=== PATIENT | female | born 1970 | race Caucasian/White ===

== ENCOUNTER → 2019-04-12 08:45 | Outpatient (BNVA) | payer MEDICAID, SELFPAY | PROVIDERS: Family Provider Family Medicine; PCP Internal Medicine; Visit Provider Nurse Practitioner | DX: F43.12 Post-traumatic stress disorder, chronic (principal); F60.3 Borderline personality disorder; F41.1 Generalized anxiety disorder | CPT/HCPCS: 99213 ==

== ENCOUNTER → 2019-07-05 08:19 | Outpatient (BNVA) | payer MEDICAID, SELFPAY | PROVIDERS: Family Provider Family Medicine; PCP Internal Medicine; Visit Provider Nurse Practitioner | DX: F41.1 Generalized anxiety disorder (principal); F60.3 Borderline personality disorder; F43.12 Post-traumatic stress disorder, chronic | CPT/HCPCS: 99213 ==

== ENCOUNTER → 2019-09-20 07:42 | Outpatient (BNVA) | payer MEDICAID, SELFPAY | PROVIDERS: Family Provider Family Medicine; Visit Provider Nurse Practitioner | DX: F41.1 Generalized anxiety disorder (principal); F60.3 Borderline personality disorder; F43.12 Post-traumatic stress disorder, chronic | CPT/HCPCS: 99213 ==

== ENCOUNTER 2019-10-14 09:40 | Outpatient (CLI) | payer MEDICAID, SELFPAY ==
--- NOTE | 2019-10-14 09:45 | MM_ITS ---
WS: [id number] SCREENING DIGITAL MAMMOGRAM WITH CAD HISTORY: SCREENING COMPARISON: 04/12/2018 and 03/08/2014 Bilateral CC and MLO views submitted. Computer aided detection analyzed. Breast composition: There are scattered areas of fibroglandular density. No suspicious masses, microc alcifications or architectural distortion. MM/[place] [id number] IMPRESSION: BI-RADS: 1-Negative FOLLOW UP: 1 Year Follow-up
== END 2019-10-14 09:41 | disposition home or self-care (01) ==
LOC: RADSHAW 09:44
PROVIDERS: PCP Physician Assistant; Visit Provider Physician Assistant
DX: Z12.31 Encounter for screening mammogram for malignant neoplasm of breast (principal)
CPT/HCPCS: 77067

== ENCOUNTER 2019-11-03 13:17 | Outpatient (CLI) | payer SELFPAY ==
--- NOTE | 2019-11-03 13:22 | XR_ITS ---
WS: [id number] EXAM: LEFT HIP: 2 VIEWS DATE OF EXAMINATION: 11/03/2019, 1328 hours COMPARISON: None. HISTORY: Patient is 49 years old with hip pain. FINDINGS: Bone density is normal in appearance. There are minimal changes of arthritis in the hip joint. No fra cture, lytic or blastic process is seen. Minimal arthritis in the left SI joint. No soft tissue abnor mality noted. XR/XR hip LT 2-3V wo/w pel* [id number] IMPRESSION: Mild changes of arthritis as described. No acute abnormality.
== END 2019-11-03 13:18 | disposition home or self-care (01) ==
LOC: RADWPI 13:17
PROVIDERS: PCP Physician Assistant; Visit Provider Anesthesiology Pain Medicine
DX: M25.552 Pain in left hip (principal)
CPT/HCPCS: 73502

== ENCOUNTER → 2019-12-22 07:27 | Outpatient (BNVA) | payer MEDICAID, SELFPAY | PROVIDERS: PCP Physician Assistant; Visit Provider Nurse Practitioner | DX: F60.3 Borderline personality disorder (principal); F41.1 Generalized anxiety disorder; F43.12 Post-traumatic stress disorder, chronic | CPT/HCPCS: 99213 ==

== ENCOUNTER → 2020-01-24 08:19 | Outpatient (BNVA) | payer MEDICAID, SELFPAY | PROVIDERS: PCP Physician Assistant; Referring Provider Orthopaedic Surgery; Visit Provider Anesthesiology Pain Medicine | DX: M25.552 Pain in left hip (principal); M25.551 Pain in right hip; M53.3 Sacrococcygeal disorders, not elsewhere classified; M79.7 Fibromyalgia | CPT/HCPCS: 20610; 99204; J1030; J3490 ==

== ENCOUNTER → 2020-02-26 12:55 | Outpatient (BNVA) | payer MEDICAID, SELFPAY | PROVIDERS: PCP Physician Assistant; Visit Provider Nurse Practitioner Family | DX: N39.0 Urinary tract infection, site not specified (principal) | CPT/HCPCS: 81000 ==

== ENCOUNTER → 2020-03-30 08:49 | Outpatient (BNVA) | payer MEDICAID, SELFPAY | PROVIDERS: PCP Physician Assistant; Visit Provider Nurse Practitioner | DX: F43.12 Post-traumatic stress disorder, chronic (principal); F60.3 Borderline personality disorder; F41.1 Generalized anxiety disorder | CPT/HCPCS: 99213 ==

== ENCOUNTER → 2020-06-05 11:22 | Outpatient (BNVA) | payer OTHER, SELFPAY | PROVIDERS: PCP Physician Assistant; Visit Provider Nurse Practitioner | DX: F60.3 Borderline personality disorder (principal) | CPT/HCPCS: 80061; 83036 ==

== ENCOUNTER → 2020-06-15 08:16 | Outpatient (BNVA) | payer MEDICAID, SELFPAY ==
[2020-06-07 10:08] VITALS: BP 128/91; BMI 36.1
== END ==
PROVIDERS: PCP Physician Assistant; Visit Provider Nurse Practitioner
DX: F43.12 Post-traumatic stress disorder, chronic (principal); F60.3 Borderline personality disorder; F41.1 Generalized anxiety disorder
CPT/HCPCS: 99214

== ENCOUNTER → 2020-09-11 13:01 | Outpatient (BNVA) | payer MEDICAID, SELFPAY ==
[2020-06-07 10:08] VITALS: BP 128/91; BMI 36.1
== END ==
PROVIDERS: PCP Physician Assistant; Visit Provider Nurse Practitioner
DX: F43.12 Post-traumatic stress disorder, chronic (principal); F60.3 Borderline personality disorder; F41.1 Generalized anxiety disorder
CPT/HCPCS: 99214

== ENCOUNTER → 2020-12-06 14:00 | Outpatient (BNVA) | payer MEDICAID, SELFPAY ==
[2020-06-07 10:08] VITALS: BP 128/91; BMI 36.1
== END ==
PROVIDERS: PCP Physician Assistant; Visit Provider Nurse Practitioner
DX: F43.12 Post-traumatic stress disorder, chronic (principal); F60.3 Borderline personality disorder; F41.1 Generalized anxiety disorder
CPT/HCPCS: 99214

== ENCOUNTER 2021-01-03 10:20 | Outpatient (CLI) | payer MEDICAID, SELFPAY ==
[2020-06-07 10:08] VITALS: BP 128/91; BMI 36.1
--- NOTE | 2021-01-03 10:27 | MR_ITS ---
WS: [id number] MRI RIGHT SHOULDER NONCONTRAST TECHNIQUE: Sagittal T2, coronal T1, T2 and proton density imaging. Axial gradient PDE imaging. CLINICAL INFORMATION: INTERNAL DERANGEMENT RT SHOULDER COMPARISON: None. FINDINGS: Moderate degenerative arthritis AC joint with mild edema and mild downsloping of the acromion. Slight impingement on the distal supraspinatus with subacromial spurring. Mild tendinopathy in the distal s upraspinatus. Normal infraspinatus. Normal subscapularis. Normal teres minor. No high-grade rotator cuff tears. Normal biceps tendon in the bicipital groove. Normal biceps labral anchor. Glenoid labrum appears reggie ssly normal. Normal bone marrow signal in the glenoid. Degenerative edema in the humerus. MR/MR shoulder RT wo con* [id number] IMPRESSION: 1. Moderate degenerative arthritis AC joint with mild edema and mild downslopi ng of the acromion. Slight impingement on the distal supraspinatus with subacro mial spurring. 2. Mild tendinopathy distal supraspinatus. 3. Rotator cuff is intact. No high-grade rotator cuff tears. 4. Normal biceps tendon in the bicipital groove. Normal biceps labral anchor. 5. Normal intra-articular biceps tendon. 6. No other significant findings.
== END 2021-01-03 10:21 | disposition home or self-care (01) ==
LOC: RADSHAW 10:26
PROVIDERS: PCP Physician Assistant; Visit Provider Physician Assistant
DX: M24.811 Other specific joint derangements of right shoulder, not elsewhere classified (principal); M19.011 Primary osteoarthritis, right shoulder
CPT/HCPCS: 73221

== ENCOUNTER → 2021-01-23 13:07 | Outpatient (BNVA) | payer MEDICAID, SELFPAY ==
[2020-06-07 10:08] VITALS: BP 128/91; BMI 36.1
== END ==
PROVIDERS: PCP Physician Assistant; Referring Provider Physician Assistant; Visit Provider Orthopaedic Surgery
DX: M25.511 Pain in right shoulder (principal)
CPT/HCPCS: 73030

== ENCOUNTER → 2021-02-19 13:54 | Outpatient (BNVA) | payer OTHER, SELFPAY ==
[2020-06-07 10:08] VITALS: BP 128/91; BMI 36.1
== END ==
PROVIDERS: PCP Physician Assistant; Visit Provider Psychiatry & Neurology Psychiatry
DX: F43.12 Post-traumatic stress disorder, chronic (principal)
CPT/HCPCS: 80061; 83036

== ENCOUNTER → 2021-02-28 12:55 | Outpatient (BNVA) | payer MEDICAID, SELFPAY ==
[2021-02-22 16:44] VITALS: BP 99/56; BMI 36.8
== END ==
PROVIDERS: PCP Physician Assistant; Visit Provider Nurse Practitioner
DX: F41.1 Generalized anxiety disorder (principal); F60.3 Borderline personality disorder; F43.12 Post-traumatic stress disorder, chronic
CPT/HCPCS: 99214

== ENCOUNTER → 2021-05-23 10:46 | Outpatient (BNVA) | payer MEDICAID, OTHER, SELFPAY ==
[2021-02-22 16:44] VITALS: BP 99/56; BMI 36.8
== END ==
PROVIDERS: PCP Physician Assistant; Visit Provider Nurse Practitioner
DX: F41.1 Generalized anxiety disorder (principal); F60.3 Borderline personality disorder; F43.12 Post-traumatic stress disorder, chronic
CPT/HCPCS: 99214

== ENCOUNTER → 2021-08-26 07:21 | Outpatient (BNVA) | payer MEDICAID, OTHER, SELFPAY ==
[2021-02-22 16:44] VITALS: BP 99/56; BMI 36.8
== END ==
PROVIDERS: PCP Physician Assistant; Visit Provider Nurse Practitioner
DX: F41.1 Generalized anxiety disorder (principal); F60.3 Borderline personality disorder; F43.12 Post-traumatic stress disorder, chronic
CPT/HCPCS: 99214

== ENCOUNTER 2022-12-10 18:05 | Emergency (ER) | payer MEDICAID, SELFPAY ==
[2021-02-22 16:44] VITALS: BP 99/56; BMI 36.8
[2022-12-10 18:09] VITALS: BP 124/84; PULSE 76; RESP 18; TEMP 36.7; O2SAT 100; BMI 35.6
--- NOTE | 2022-12-10 18:59 | ED_ITS ---
HPI - Nausea/Vomiting/Diarrhea General: Chief complaint: Nausea/Vomiting/Diarrhea Stated complaint: N/V, fever, abdomin pain Time Seen by Provider: 12/10/22 18:49 History of Present Illness: 52-year-old female comes in today with central abdominal pain radiating to her back for the last 2 weeks with nausea and vomiting. Patient reports a history of pancreatitis. Patient does have a history of of chronic pain disorder secondary to osteoarthritis in the hip and degenerative spinal disc disease. Patient denies alcohol use. Patient appears nontoxic. Patient appears in mild to moderate pain. Associated nausea: Yes Associated symtoms: Reports nausea Review of Systems 2 General: Reports: 10 or more systems reviewed and unremarkable except in HPI and below Const: Denies: fever(s) GI: Reports: abdominal pain, nausea and vomiting Musc: Denies: neck pain or back pain Skin/Breast: Denies: rash PFSH ED PFSH: Medical History (Updated 12/10/22 @ 21:19 by JOVON Macias) Borderline personality disorder Fibromyalgia Generalized anxiety disorder Hidradenitis Hypercholesteremia Hypertension Hypothyroidism Post-traumatic stress disorder, chronic Psychiatric care Type 2 diabetes mellitus Vaginal atrophy Surgical History H/O dilation and curettage H/O foot surgery removed heel spur, repaired nerve damaged from plantar fascitis H/O removal of cyst ganglion cyst---right third finger H/O tubal ligation (~1995) H/O unilateral oophorectomy (~2006) due to cyst on the ovary H/O: hemorrhoidectomy (~02/2020) performed at [facility] in [place] H/O: hysterectomy (~2001) [facility]--due to fibroid-- performed in [place]---both ovaries spared---> right ovary was later removed due to cyst History of appendectomy (~2006) History of cholecystectomy History of reconstructive repair of rectocele (~2006) due to trauma from delivery; bladder sling--- completed in [place] Family History Mother Diabetes Hypertension Family history of thyroid problem Cancer kidney, lung and brain Family/Other Diabetes Maternal aunt Maternal uncle Stroke Maternal uncle Breast cancer Paternal aunt Maternal aunt Colon cancer Cousin Cancer multiple family members with leukemia and lymphoma on father's side Grandmother Stroke Maternal grandmother Denies family history of Ovarian cancer Heart disease Uterine cancer Social History Smoking and tobacco status: current some day smoker e-cigarettes E-Cigarette Details: e-cigarette and with nicotine Second hand smoke exposure: Yes Smoking risk assessment/counseling performed?: Yes Alcohol intake: never Substance/Drug Use: never Adopted: No Caregiver/support person: Yes Lives independently: Yes Household members: none Housing: Apartment Marital status: Marital status details: twice Number of children: 2 Number of grandchildren: 4 Highest education level completed: GED or Equivalent service: No Current occupational status: disabled Pets and animals: No Leisure activites: exercise Sexually active: No Do you think of yourself as: Straight/Heterosexual Current gender identity: Female Jessica/Orthodoxy: Yazidi Special jessica needs: No Agree to transfusion: Yes Financial difficulty paying for basics: Not Very Hard Female Reproductive History: Para: 2 Spontaneous abortions: No Physical Exam Const: COMMON NORMALS: alert HENMT: COMMON NORMALS: normocephalic HEAD & SCALP: normocephalic Neck/C-Spine: COMMON NORMALS: full ROM Chest: COMMONS NORMALS: normal inspection of the chest Resp: COMMON NORMALS: normal respiratory effort and clear to auscultation bilaterally AUSCULTATION: clear to auscultation bilaterally Cardio: COMMON NORMALS: regular rate RATE: regular rate GI: COMMON NORMALS: Soft to palpation PALPATION: Yes Soft to palpation and Yes Tenderness to palpation present (GI) (tenderness central abd) Back/Pelvis: COMMON NORMALS: thoracic and lumbar spine normal to inspection Extremity: COMMON NORMALS: full ROM Neuro: SENSORIUM/ORIENTATION: Yes alert Skin: COMMON NORMALS: turgor normal GENERAL SKIN EXAM: turgor normal Course Vital Signs: Vital signs: Vital Signs Temperature 98.1 F 12/10/22 18:09 Pulse Rate 51 L 12/10/22 20:32 Respiratory Rate 18 12/10/22 20:32 Blood Pressure 108/77 12/10/22 20:32 Pulse Oximetry 100 12/10/22 20:32 Oxygen Delivery Me thod Room Air 12/10/22 20:32 MDM - Nausea/Vomiting/Diarrhea Medical Decision Making 52-year-old female comes in today with complaints of increased nausea and vomiting for the last 2 weeks. Patient appears nontoxic. Patient appears in mild to no pain. Abdomen is tender in the midepigastric region. Skin is warm and dry. Vital signs are normal. Differential diagnosis includes exacerbation of chronic pancreatitis, gastroparesis, gastritis, constipation, choledocholithiasis, aortic aneurysm. CBC and CMP noted some mild increase in creatinine at 1.0.. CT of the abdomen and pelvis showed no acute findings. Patient was treated for mild dehydration and abdominal pain with IV fluids morphine and ondansetron. Patient was discharged home with [facility] for concerns of probable gastroparesis due to increased pain and discomfort after eating and frequent nausea and vomiting and history of diabetes. Recommend follow-up with primary care for further evaluation and treatment. Patient reported u nderstanding agreed to plan. Lab Data 12/10/22 18:35 12/10/22 18:35 Radiology Impressions Abdomen/Pelvis CT 12/10/22 19:09 IMPRESSION: No acute findings. Laboratory Results WBC 7.69 10^3/uL (3.29-11.43) 12/10/22 18:35 RBC 3.81 10^6/uL (3.85-5.65) L 12/10/22 18:35 Hgb 11.50 g/dL (11.27-16.99) 12/10/22 18:35 Hct 33.0 % (36-47) L 12/10/22 18:35 MCV 86.6 fl (85-98) 12/10/22 18:35 MCH 30.2 pg (27-33) 12/10/22 18:35 MCHC 34.8 g/dL (30-55) 12/10/22 18:35 RDW 13.9 % (12.1-15.1) 12/10/22 18:35 Plt Count 409 10^3/cmm (157-399) H 12/10/22 18:35 MPV 10.7 fL (7.4-10.4) H 12/10/22 18:35 Neut % (Auto) 50.9 % 12/10/22 18:35 Lymph % (Auto) 41.5 % 12/10/22 18:35 Allen % (Auto) 5.7 % 12/10/22 18:35 Eos % (Auto) 1.2 % 12/10/22 18:35 Baso % (Auto) 0.4 % 12/10/22 18:35 Neut # (Auto) 3.92 10^3/uL (1.8-7.7) 12/10/22 18:35 Lymph # (Auto) 3.2 10^3/uL (0.8-4.8) 12/10/22 18:35 Allen # (Auto) 0.4 10^3/uL (0.2-0.9) 12/10/22 18:35 Eos # (Auto) 0.1 10^3/uL (0.0-0.8) 12/10/22 18:35 Baso # (Auto) 0.0 10^3/uL (0.0-0.1) 12/10/22 18:35 Nucleated RBC % (auto) 0 % 12/10/22 18:35 Nucleated RBCs # 0.0 /100WBC 12/10/22 18:35 Sodium 140 mmol/L (136-145) 12/10/22 18:35 Potassium 3.6 mmol/L (3.5-5.1) 12/10/22 18:35 Chloride 107 mmol/L (98-107) 12/10/22 18:35 Carbon Dioxide 23 mmol/L (22-29) 12/10/22 18:35 Anion Gap 13.6 (5-19) 12/10/22 18:35 BUN 22 mg/dL (6-20) H 12/10/22 18:35 Creatinine 1.0 mg/dL (0.5-0.9) H 12/10/22 18:35 GFR Calculation 57.8 mL/min (90-130) L 12/10/22 18:35 Glucose 95 mg/dL (65-115) 12/10/22 18:35 Calculated Osmolality 293 mOsm/kg (285-295) 12/10/22 18:35 Calcium 9.5 mg/dL (8.5-10.5) 12/10/22 18:35 Total Bilirubin 0.4 mg/dL (0.15-1.2) 12/10/22 18:35 AST 13 U/L (0-32) 12/10/22 18:35 ALT 9 U/L (0-33) 12/10/22 18:35 Alkaline Phosphatase 31 U/L (35-105) L 12/10/22 18:35 Total Protein 6.8 g/dL (6.6-8.7) 12/10/22 18:35 Albumin 4.3 g/dL (3.5-5.2) 12/10/22 18:35 Globulin 2.5 g/dL (1.3-4.6) 12/10/22 18:35 Lipase 45 U/L (13-60) 12/10/22 18:35 Urine Color Yellow (Yellow) 12/10/22 19:50 Urine Appearance Clear (CLEAR) 12/10/22 19:50 Urine pH 5 (5-7) 12/10/22 19:50 Ur Specific Sidney 1.015 (1.005-1.030) 12/10/22 19:50 Urine Protein Neg (Negative) 12/10/22 19:50 Urine Glucose (UA) Norm (Normal) 12/10/22 19:50 Urine Ketones 1+ (Negative) H 12/10/22 19:50 Urine Blood Neg (Negative) 12/10/22 19:50 Urine Nitrate Negative (Negative) 12/10/22 19:50 Urine Bilirubin 1+ (Negative) H 12/10/22 19:50 Urine Urobilinogen Norm mg/dL (Negative) 12/10/22 19:50 Ur Leukocyte Esterase Trace (Negative) H 12/10/22 19:50 Urine RBC Rare /hpf (0-2) 12/10/22 19:50 Urine WBC 0-4 /hpf (0-5) H 12/10/22 19:50 Ur Squamous Epith Cells 0-4 /hpf (0-5) H 12/10/22 19:50 Amorphous Sediment Not Reportable 12/10/22 19:50 Urine Bacteria None /hpf (NONE) 12/10/22 19:50 Hyaline Casts 0-4 /lpf H 12/10/22 19:50 Urine Mucus 2+ /hpf 12/10/22 19:50 All radiology interpretation(s) finalized by discharge Discharge Plan Discharge Patient Disposition: Home Clinical Impression: Diabetic gastroparesis Abdominal pain Qualifiers: Abdominal location: epigastric Qualified Code(s): R10.13 - Epigastric pain Condition: Stable Prescriptions: New metoclopramide HCl 10 mg tablet 10 mg PO Q6H PRN (Reason: nausea and vomiting) Qty: 40 0RF No Action diphenhydramine HCl [Benadryl] 25 mg capsule 25 mg PO .Qhs PRN (Reason: allergy symptoms) hydrocodone-acetaminophen [Hunter] 10-325 mg tablet 1 tab PO QID lisinopril 10 mg tablet 10 mg PO QDAY fenofibrate micronized 134 mg capsule 134 mg PO QDAY metformin 850 mg tablet 500 mg PO BID tizanidine 4 mg capsule 4 mg PO Q6H PRN ondansetron HCl 4 mg/5 mL solution 4 mg PO Q6H PRN levothyroxine 75 mcg tablet 75 mcg PO DAILY duloxetine [Cymbalta] 60 mg capsule,delayed release(DR/EC) 60 mg PO BID Qty: 60 2RF topiramate [Topamax] 100 mg tablet 100 mg PO BID Qty: 60 2RF diazepam 10 mg tablet See Rx Instructions .ROUTE .COMPLEX Qty: 75 2RF Rx Instructions: Take one tablet by mouth 2 to 3 times daily as needed for anxiety. Discharge Orders: Discharge ED (Routine); Ordered 12/10/22 Ordered By: Leo Demarco Referrals: Margarita Sin PA [Primary Care Provider] - Discharge Diet: Usual diet Discharge Activity: Increase activity as tolerated Patient Instructions: Abdominal Pain (ED) Activity Restrictions/Additional Instructions: Continue with routine care. Use Reglan as needed for gastric discomfort or nausea and vomiting. Light diet. Follow-up with primary care for further evaluation and treatment. Return to ED for new concerns. Coding Level of Care Code ED Pricing Consultant for Ligia Mcwilliams
[2022-12-10 19:01] LABS: Basophils % 0.4 %; Eosinophils # 0.1 10^3/uL (0.0-0.8); Eosinophils % 1.2 %; Lymphocytes # 3.2 10^3/uL (0.8-4.8); Lymphocytes % 41.5 %; Mean Corpuscular HGB Conc 34.8 g/dL (30-55); Mean Corpuscular Hemoglobin 30.2 pg (27-33); Mean Corpuscular Volume 86.6 fl (85-98); Mean Platelet Volume 10.7 fL (7.4-10.4); Monocytes # 0.4 10^3/uL (0.2-0.9); Monocytes % 5.7 %; Neutrophils # 3.92 10^3/uL (1.8-7.7); Neutrophils % 50.9 %; Nucleated Red Blood Cells % 0 %; Platelet Count 409 10^3/cmm (157-399); Red Blood Count 3.81 10^6/uL (3.85-5.65); Red Cell Distribution Width 13.9 % (12.1-15.1); White Blood Count 7.69 10^3/uL (3.29-11.43)
--- NOTE | 2022-12-10 19:09 | CTR_ITS ---
PROCEDURE INFORMATION: Exam: CT Abdomen And Pelvis With Contrast Exam date and time: 12/10/2022 7:39 PM Age: 52 years old Clinical indication: Abdominal pain; Generalized; Prior surgery; Surgery date: 6+ months; Surgery type: Appy, kanwal, hyst; Additional info: Abd pain, HX of pancreatitis TECHNIQUE: Imaging protocol: Computed tomography of the abdomen and pelvis with contrast. Radiation optimization: All CT scans at this facility use at least one of these dose optimization techniques: automated exposure control; mA and/or kV adjustment per patient size (includes targeted exams where dose is matched to clinical indication); or iterative reconstruction. Contrast material: OMNI 350; Contrast volume: 100 ml; Contrast route: INTRAVENOUS (IV); REPORTING DATA: Count of CT and Cardiac NM exams in prior 12 months: This patient has received 0 known CTs and 0 known cardiac nuclear medicine studies in the 12 months prior to the current study. COMPARISON: CT abdomen pelvis w con* [id number] 12/19/2017 12:49 PM RADIATION DOSE METRICS: Total DLP (mGy-cm): 829 FINDINGS: Lungs: Lung bases are clear Liver: Normal. No mass. Gallbladder and bile ducts: There has been a cholecystectomy. There is no common bile duct dilation. Pancreas: The pancreas is normal. Spleen: The spleen is normal. Adrenal glands: There is 7 mm sized nodule left adrenal gland unchanged from 12/19/2017. No further evaluation necessary. The right adrenal gland is normal. Kidneys and ureters: There is a left renal collecting system calcification. The right kidney is normal. There is no evidence of hydronephrosis. There is no stone along the course of either ureter. Stomach and bowel: There is no evidence of colitis/diverticulitis. There is no evidence of intestinal obstruction. Appendix: Not identified Intraperitoneal space: There is no evidence of free intraperitoneal fluid. Vasculature: The aorta is normal. There is no evidence of an abdominal aortic aneurysm. Lymph nodes: There is no evidence of lymphadenopathy. Urinary bladder: Unremarkable as visualized. Reproductive: There has been a hysterectomy. Bones/joints: Unremarkable. No acute fracture. Soft tissues: There is a lipoma of the distal left iliopsoas muscle unchanged. CT/CT abdomen pelvis w con* [id number] IMPRESSION: No acute findings.
[2022-12-10 19:13] LABS: Alanine Aminotransferase 9 U/L (0-33); Albumin Level 4.3 g/dL (3.5-5.2); Alkaline Phosphatase 31 U/L (35-105); Anion Gap 13.6 (5-19); Aspartate Amino Transferase 13 U/L (0-32); Blood Urea Nitrogen 22 mg/dL (6-20); Calcium 9.5 mg/dL (8.5-10.5); Carbon Dioxide 23 mmol/L (22-29); Chloride 107 mmol/L (98-107); Globulin 2.5 g/dL (1.3-4.6); Glomerular Filtration Rate 57.8 mL/min (90-130); Glucose 95 mg/dL (65-115); Lipase 45 U/L (13-60); Osmolality Calculated 293 mOsm/kg (285-295); Potassium 3.6 mmol/L (3.5-5.1); Sodium 140 mmol/L (136-145); Total Bilirubin 0.4 mg/dL (0.15-1.2); Total Protein 6.8 g/dL (6.6-8.7)
[2022-12-10] MEDS: iohexol 350 mg/mL 500 mL Btl (per mL) IV (19:16)
[2022-12-10] MEDS: ondansetron 2 mg/ML SDV 2 mL 4 MG IVP (19:19)
[2022-12-10 19:21] VITALS: RESP 16
[2022-12-10] MEDS: morphine 4 mg/mL SDV 1 mL IVP (19:21)
[2022-12-10] MEDS: lactated ringers 1,000 ML 999 ML IV (19:21)
[2022-12-10 20:07] LABS: Blood Urine Neg (Negative); Glucose Urine UA Norm (Normal); Ketones Urine 1+ (Negative); Protein Urine Neg (Negative); Specific Gravity, Urine 1.015 (1.005-1.030); Urine Appearance Clear (CLEAR); Urine Color Yellow (Yellow); pH Urine 5 (5-7)
[2022-12-10 20:08] LABS: Add Urine Microscopic? YES; Bilirubin Urine 1+ (Negative); Leukocyte Esterase Urine Trace (Negative); Nitrate Urine Negative (Negative); Urobilinogen Urine Norm (Negative)
[2022-12-10 20:15] LABS: Add Urine Culture? No; Hyaline Casts Urine 0-4 /lpf; Mucus Urine 2+ /hpf; RBC Urine RARE /hpf (0-2); Squamous Epithelial Cell Urine 0-4 /hpf (0-5); WBC Urine 0-4 /hpf (0-5)
[2022-12-10 20:32] VITALS: BP 108/77; PULSE 51; RESP 18; O2SAT 100
== END 2022-12-10 21:54 | disposition home or self-care (01) ==
PROVIDERS: Emergency Medicine; Emergency Provider Nurse Practitioner Family; PCP Physician Assistant
DX: E11.43 Type 2 diabetes mellitus with diabetic autonomic (poly)neuropathy (principal); K31.84 Gastroparesis; Z79.84 Long term (current) use of oral hypoglycemic drugs; F17.290 Nicotine dependence, other tobacco product, uncomplicated; I10 Essential (primary) hypertension; R10.13 Epigastric pain
CPT/HCPCS: 36415; 74177; 80053; 81001; 83690; 85025; 96361; 96374; 96375; 99285; J2270; J2405; J7120; Q9967

== ENCOUNTER → 2022-12-21 16:00 | Outpatient (BNVA) | payer MEDICAID, SELFPAY ==
[2021-02-22 16:44] VITALS: BP 99/56; BMI 36.8
== END ==
PROVIDERS: PCP Physician Assistant; Visit Provider Nurse Practitioner
DX: R39.9 Unspecified symptoms and signs involving the genitourinary system (principal); N30.01 Acute cystitis with hematuria
CPT/HCPCS: 81000

== ENCOUNTER → 2023-03-19 14:34 | Outpatient (BNVA) | payer MEDICAID, SELFPAY ==
[2021-02-22 16:44] VITALS: BP 99/56; BMI 36.8
== END ==
PROVIDERS: PCP Physician Assistant; Referring Provider Physician Assistant; Visit Provider Internal Medicine Cardiovascular Disease
DX: I49.9 Cardiac arrhythmia, unspecified (principal); I47.10 Supraventricular tachycardia, unspecified
CPT/HCPCS: 93270

== ENCOUNTER 2023-10-06 14:24 | Outpatient (CLI) | payer MEDICAID, SELFPAY ==
[2021-02-22 16:44] VITALS: BP 99/56; BMI 36.8
--- NOTE | 2023-10-06 14:32 | MR_ITS ---
WS: [id number] MRI RIGHT KNEE NONCONTRAST TECHNIQUE: Axial PD, coronal PD fat sat, coronal PD, sagittal PD, and sagittal PD fat-sat images obta ined. CLINICAL INFORMATION: R KNEE DERANGEMENT COMPARISON: None. FINDINGS: Distal quadriceps and patella tendons are intact. Hypertrophic patella. Normal ACL and PCL. Normal la teral meniscus. Horizontal tear involving the posterior horn medial meniscus extending to the articul ar surface. Slight peripheral extrusion of the medial meniscus. Normal medial and lateral collateral ligaments. Mild chondromalacia patella. Normal medial and lateral patellar retinaculum. Normal poplit eal fossa. Normal bone marrow signal in the femoral condyles and tibial plateau. MR/MR knee RT wo con* [id number] IMPRESSION: 1. Normal ACL and PCL. 2. Mild chondromalacia patella. 3. Horizontal tear involving the posterior horn medial meniscus extending to t he peripheral articular surface. Mild peripheral extrusion of the medial menisc us. Outbridge grading: grade II: blister-like swelling/fraying of articular cartila ge extending to surface
== END 2023-10-06 14:25 | disposition home or self-care (01) ==
LOC: RAD 14:24
PROVIDERS: PCP Physician Assistant; Visit Provider Physician Assistant
DX: M23.91 Unspecified internal derangement of right knee (principal); S83.241A Other tear of medial meniscus, current injury, right knee, initial encounter; M22.41 Chondromalacia patellae, right knee; M22.8X1 Other disorders of patella, right knee; X58.XXXA Exposure to other specified factors, initial encounter
CPT/HCPCS: 73721

== ENCOUNTER → 2023-10-12 08:29 | Outpatient (BNVA) | payer MEDICAID, SELFPAY ==
[2021-02-22 16:44] VITALS: BP 99/56; BMI 36.8
== END ==
PROVIDERS: PCP Physician Assistant; Visit Provider Specialist
DX: S83.241A Other tear of medial meniscus, current injury, right knee, initial encounter (principal); X58.XXXA Exposure to other specified factors, initial encounter; E66.9 Obesity, unspecified; Z68.35 Body mass index [BMI] 35.0-35.9, adult
CPT/HCPCS: 20610; 73560; 73565; 99204; J1100; J2795; J3301

== ENCOUNTER → 2024-05-13 08:48 | Outpatient (BNVA) | payer MEDICAID, SELFPAY ==
[2023-12-15 15:19] VITALS: BP 117/82; BMI 38.4
== END ==
PROVIDERS: PCP Physician Assistant; Visit Provider Specialist
DX: M17.11 Unilateral primary osteoarthritis, right knee (principal); Z71.89 Other specified counseling
CPT/HCPCS: 20610; J1100; J2795; J3301